=== PATIENT | female | born 1950 | race Caucasian/White ===

== ENCOUNTER 2016-05-03 07:55 | Inpatient (IN) | payer OTHER ==
[~2016-05-03] VITALS: Ht 162.6 cm; Wt 90.7 kg
[2016-05-03 08:01] VITALS: BP 137/84; PULSE 70; RESP 16; TEMP 97.3; O2SAT 97
--- NOTE | 2016-05-03 08:07 | NUR ---
Placed in room 5 . Placed on radiographer cardiac catheterization, blood pressure machine and pulse oximeter. To gown for exam. Side rails up. Report given to Noemi PURCELL.
--- NOTE | 2016-05-03 08:10 | NUR ---
Recevied Pt in bed 5. Pt stated she has been having x5 bloody stools since 4AM. Pt denies pain or discomfort.
[2016-05-03] MEDS ORDERED: NACL 0.9% 1,000 ML IV ONE (08:16)
[2016-05-03] MEDS ORDERED: NACL 0.9% 1,000 ML IV SCH (08:16)
--- NOTE | 2016-05-03 08:34 | NUR ---
Blood & blood culture for labwork drawn from. New IV inserted left wrist 20G HL. No s/s of infiltration or inflammation noted. Patient tolerated procedure. Informed Pt to push the call light if Pt needs assistance with anything. Pt verbalized understanding. Call light within easy reach,bed at lowest position, will continue to monitor. Addendum: 05/03/16 at 0924 by DEXTER IV access entered in error. correct IV site right wrist 20G HL
[2016-05-03 08:52] LABS: BASOPHILS # (AUTO) 0.3 K/uL (0.0-0.2); EOSINOPHILS # (AUTO) 0.1 K/uL (0.0-0.4); LYMPHOCYTES # (AUTO) 1.3 K/uL (1.0-5.5); RED CELL DISTRIBUTION WIDTH 13.5 % (9.0-15.0); WHITE BLOOD COUNT (AUTO) 5.5 K/uL (4.8-10.8)
[2016-05-03 08:55] LABS: BASOPHILS % (AUTO) 4.7 % (0.0-2.0); EOSINOPHILS % (AUTO) 2.6 % (0.0-4.0); HEMOGLOBIN 11.9 g/dL (12.0-16.0); LYMPHOCYTES % (AUTO) 23.1 % (20.5-51.5); MEAN CORPUSCULAR HEMOGLOBIN 29 pg (27-31); MEAN CORPUSCULAR HGB CONC 34 % (32-36); MEAN CORPUSCULAR VOLUME 87 fL (79.0-98.0); MONOCYTES # (AUTO) 0.3 K/uL (0.0-1.0); MONOCYTES % (AUTO) 6.3 % (1.7-9.3); NEUTROPHILS # (AUTO) 3.5 K/uL (1.8-7.7); NEUTROPHILS % (AUTO) 63.3 % (40.0-70.0); PLATELET COUNT (AUTO) 270 K/uL (130-430); RED BLOOD CELL COUNT(AUTO) 4.04 MIL/uL (4.2-6.2)
[2016-05-03 08:57] LABS: CALCIUM 8.9 mg/dL (8.4-11.0); CREATININE 0.73 mg/dL (0.55-1.30); POTASSIUM 4.1 mmol/L (3.5-5.1)
[2016-05-03] MEDS: ONDANSETRON HCL 4 MG/2 ML VIAL IVP ONE ×2 (08:57→09:03)
[2016-05-03 09:00] LABS: PROTHROMBIN TIME 10.6 SECS (9.5-12.5)
[2016-05-03 09:15] LABS: ALBUMIN 4.1 g/dL (3.4-4.8); TOTAL BILIRUBIN 0.5 mg/dL (0.0-1.0)
[2016-05-03 09:28] LABS: BILIRUBIN,URINE NEGATIVE (NEGATIVE); CLARITY/URINE CLEAR (CLEAR); COLOR,URINE YELLOW (YELLOW); GLUCOSE,URINE NEGATIVE (NEGATIVE); KETONES,URINE NEGATIVE (NEGATIVE); LEUKOCYTE ESTERASE ,URINE TRACE (NEGATIVE); NITRITE, URINE NEGATIVE (NEGATIVE); PH,URINE 5.5 (5.0-8.0); PROTEIN URINE NEGATIVE (NEGATIVE); UROBILINOGEN,URINE 0.2 (0.2-1.0)
[2016-05-03 09:29] LABS: BLOOD, URINE TRACE (NEGATIVE)
--- NOTE | 2016-05-03 09:31 | NUR ---
Dr. Munoz at the bedside discussing plan of care. Currently awaiting new orders.
--- NOTE | 2016-05-03 09:31 | NUR ---
Rectal exam performed by DR VELÁZQUEZ with JACKLYN MAX RN at bedside during procedure. Patient tolerated well.
[2016-05-03 09:43] LABS: BACTERIA,URINE FEW /HPF (None Seen); RBC,URINE 0-3 /HPF (0-3); WBC,URINE 0-3 /HPF (0-3)
[2016-05-03 09:44] LABS: MUCUS,URINE None Seen /LPF (None Seen)
[2016-05-03] MEDS ORDERED: ASPI-1063 PO (10:27)
[2016-05-03] MEDS ORDERED: LIP10 PO (10:27)
[2016-05-03] MEDS ORDERED: LOSA100T11 PO (10:27)
[2016-05-03] MEDS ORDERED: ONDANSETRON HCL 4 MG/2 ML VIAL IM PRN (10:30)
--- NOTE | 2016-05-03 10:44 | NUR ---
Patient will be admitted to care of DR SMALL. Admitted to TELE unit. Will go to room 135. Belongings list completed. Summary report printed. Report given to NURSE.
--- NOTE | 2016-05-03 10:57 | NUR ---
CALLED GI CONSULT TO DR JOHN INPATIENT CODER FOR DR HARDY, RE: GI BLEED. SPOKE TO OLGA
--- NOTE | 2016-05-03 11:13 | NUR ---
ADMISSION: The patient 66 y/o, F admitted by DR SMALL, was given written information regarding hospital policies, unit procedures and contact persons. Valuables were checked and SIGNED.
[2016-05-03] MEDS ORDERED: PANTOPRAZOLE SODIUM 40 MG/VIAL (PROTONIX) IVP ONE (11:15)
[2016-05-03 11:17] VITALS: BP 141/80; PULSE 62; RESP 16; TEMP 97.5; O2SAT 97
--- NOTE | 2016-05-03 12:00 | NUR ---
NOTE REPORT ON PT GIVEN AT 1135AM BY ADMIT RN JANNETH. PT WAS ORIENTED TO NURSING ROUTINES AND PROCEDURES. IV IN RIGHT WRIST PATENT AND INTACT AT THIS TIME. ADMISSION ASSESSMENT WAS COMPLETED AT THIS TIME WELL. CALL LIGHT WITHIN REACH.
--- NOTE | 2016-05-03 14:00 | NUR ---
NOTE PT WAS GIVEN CLEAR LIQUIDS AND TOLERATED WELL. NO NEEDS NOTED. CALL LIGHT WITHIN REACH.
[2016-05-03] MEDS: NACL 0.9% 1,000 ML IV SCH ×2 (14:40→20:42)
[2016-05-03 16:58] VITALS: BP 117/56; PULSE 74; RESP 17; TEMP 97; O2SAT 95
--- NOTE | 2016-05-03 17:00 | NUR ---
NOTE DR JOHN WAS CALLED AT 1600, TO REPORT THAT PT WAS HAVING VERY BLOODY STOOLS. 3X SINCE ADMISSION TO FLOOR AT 1135AM. PT STATES "ALL THAT COMES OUT IS WATERY, BLOODY DRAINAGE FROM [facility] TODAY". WAITING FOR CALL BACK FROM DR JOHN.
[2016-05-03] MEDS: LOSARTAN POTASSIUM 50 MG TABLET (COZAAR) PO ONE ×2 (17:52→17:57)
[2016-05-03 18:13] LABS: HEMATOCRIT 27.4 % (36-48); HEMOGLOBIN 9.2 g/dL (12.0-16.0)
--- NOTE | 2016-05-03 18:15 | NUR ---
NOTE DR ALBRIGHT WAS ON THE FLOOR. ORDERS GIVEN AND CARRIED OUT AT THIS TIME. PT RESTING IN BED. PT WAS GIVEN BSC AND INSTRUCTED TO USE BSC, PT WAS VERY WEAK AND LIGHTHEADED WHEN AMBULATING TO RESTROOM. PT VERBALIZED UNDERSTANDING. PT WAS CHECKED ON Q1' AND PRN FOR NEEDS AND CARE ALL SHIFT. PT FINISHED HER CLEAR LIQUIDS DINNER TRAY AT THIS TIME. TOLERATED DIET WELL AT THIS TIME. CALL LIGHT WITHIN REACH. NO SOB/RESP DISTRESS OR PAIN/DISCOMFORT NOTED AT THIS TIME.
--- NOTE | 2016-05-03 19:50 | NUR ---
initial nursing notes: Patient is awake. Patient has an IV fluid infusing on the right wrist IV access. Encouraged patient to use call light when getting out of the bed. Patient demonstrated proper use of call light.
[2016-05-03 20:19] VITALS: BP 132/62; PULSE 71; RESP 15; TEMP 99; O2SAT 97
[2016-05-03] MEDS: ATORVASTATIN 10 MG TABLET PO SCH (20:34)
[2016-05-03] MEDS: PANTOPRAZOLE SODIUM 40 MG/VIAL (PROTONIX) IVP SCH (20:39)
--- NOTE | 2016-05-03 21:50 | NUR ---
nursing rounds: Patient is resting in bed, watching television.
--- NOTE | 2016-05-03 23:50 | NUR ---
nursing rounds: Patient is asleep. Patient has no shortness of breath.
[2016-05-04] VITALS (7 sets, daily range): BP systolic 111–131; BP diastolic 56–88; PULSE 64–78; RESP 16–20; TEMP 97.8–98.9; O2SAT 97–100
--- NOTE | 2016-05-04 01:50 | NUR ---
nursing rounds: Patient is sleeping in bed. Kept siderails up X 3 and kept bed alarm on for patient's safety.
--- NOTE | 2016-05-04 03:50 | NUR ---
nursing rounds: Patient is sleeping in bed. Patient has no respiratory distress.
--- NOTE | 2016-05-04 05:45 | NUR ---
nursing rounds: Patient calmly resting in bed. Call light within patient's reach.
[2016-05-04] MEDS: NACL 0.9% 1,000 ML IV SCH ×3 (06:16→20:56)
[2016-05-04 07:16] LABS: CALCIUM 7.9 mg/dL (8.4-11.0); CREATININE 0.67 mg/dL (0.55-1.30); POTASSIUM 3.6 mmol/L (3.5-5.1)
--- NOTE | 2016-05-04 07:57 | NUR ---
closing nursing notes: Patient is awake, alert and oriented X 4. Patient is in no acute respiratory distress. No episodes of fall and no injuries throughout the claims specialist. Provided nursing report to incoming morning shift nurse, Daisy Mcghee RN, at patient's bedside.
--- NOTE | 2016-05-04 08:00 | NUR ---
INITIAL NOTES IN BED AWAKE, ALERT AND ORIENTED. DENIES ANY PAIN OR DISCOMFORT. DENIES ANY N/V. USES BEDSIDE COMMODE. IVF INFUSING WELL. ENC. TO CALL FOR HELP AT ALL TIMES. CALL LIGHT IN REACH. WILL MONITOR.
[2016-05-04 08:20] LABS: BASOPHILS % (AUTO) 0.3 % (0.0-2.0); EOSINOPHILS # (AUTO) 0.1 K/uL (0.0-0.4); EOSINOPHILS % (AUTO) 1.5 % (0.0-4.0); HEMOGLOBIN 8.2 g/dL (12.0-16.0); LYMPHOCYTES # (AUTO) 1.6 K/uL (1.0-5.5); MEAN CORPUSCULAR HEMOGLOBIN 30 pg (27-31); MEAN CORPUSCULAR HGB CONC 34 % (32-36); MEAN CORPUSCULAR VOLUME 87 fL (79.0-98.0); MONOCYTES # (AUTO) 0.3 K/uL (0.0-1.0); MONOCYTES % (AUTO) 5.5 % (1.7-9.3); NEUTROPHILS # (AUTO) 4.2 K/uL (1.8-7.7); NEUTROPHILS % (AUTO) 66.7 % (40.0-70.0); PLATELET COUNT (AUTO) 200 K/uL (130-430); RED BLOOD CELL COUNT(AUTO) 2.78 MIL/uL (4.2-6.2); RED CELL DISTRIBUTION WIDTH 13.4 % (9.0-15.0); WHITE BLOOD COUNT (AUTO) 6.2 K/uL (4.8-10.8)
[2016-05-04] MEDS: PANTOPRAZOLE SODIUM 40 MG/VIAL (PROTONIX) IVP SCH ×2 (09:00→20:53)
[2016-05-04] MEDS: LOSARTAN POTASSIUM 50 MG TABLET (COZAAR) PO SCH (09:01)
--- NOTE | 2016-05-04 09:27 | NUR ---
PAGED PAGEBlue SMALL RE: H&H RESULTS. AWAITING FOR CALL BACK
--- NOTE | 2016-05-04 09:43 | NUR ---
Nutrition Update Manuel Scale 18 noted. Pt admitted for GI bleed. Diet: clear liquid, NPO (2 active orders) BMI: 34.3 kg/m2 RD to follow per nutrition care standards.
--- NOTE | 2016-05-04 10:08 | NUR ---
spoke to dr. santos and ordered to transfused 1 unit of prbc. and check cbc at 1600.
[2016-05-04] MEDS ORDERED: DIATR MEGLU/DIATRIZ SOD 30 ML SOLUTION PO ONE (10:50)
--- NOTE | 2016-05-04 12:00 | NUR ---
blood transfusion started. educate pt on blood transfusion reaction. pt verbalize understanding. will monitor.
--- NOTE | 2016-05-04 14:10 | NUR ---
ROUNDS RESTING IN BED, BLOOD STILL INFUSING. NO REACTION NOTED AT THIS TIME. WILL MONITOR
--- NOTE | 2016-05-04 14:40 | NUR ---
1 unit of blood transfusion done. no reaction noted.
--- NOTE | 2016-05-04 15:30 | NUR ---
PT WENT FOR CT ABDOMEN/PELVIS. NO DISTRESS NOTED.
--- NOTE | 2016-05-04 16:00 | NUR ---
ROUNDS RESTING IN BED. DENIES ANY PAIN OR DISCOMFORT.
[2016-05-04 16:12] LABS: BASOPHILS % (AUTO) 0.3 % (0.0-2.0); EOSINOPHILS # (AUTO) 0.1 K/uL (0.0-0.4); EOSINOPHILS % (AUTO) 2.1 % (0.0-4.0); HEMATOCRIT 26.9 % (36-48); HEMOGLOBIN 9.3 g/dL (12.0-16.0); LYMPHOCYTES # (AUTO) 1.5 K/uL (1.0-5.5); LYMPHOCYTES % (AUTO) 31.1 % (20.5-51.5); MEAN CORPUSCULAR HEMOGLOBIN 30 pg (27-31); MEAN CORPUSCULAR HGB CONC 35 % (32-36); MEAN CORPUSCULAR VOLUME 85 fL (79.0-98.0); MONOCYTES # (AUTO) 0.2 K/uL (0.0-1.0); MONOCYTES % (AUTO) 3.9 % (1.7-9.3); NEUTROPHILS % (AUTO) 62.6 % (40.0-70.0); PLATELET COUNT (AUTO) 193 K/uL (130-430); RED BLOOD CELL COUNT(AUTO) 3.17 MIL/uL (4.2-6.2); RED CELL DISTRIBUTION WIDTH 13.5 % (9.0-15.0); WHITE BLOOD COUNT (AUTO) 4.8 K/uL (4.8-10.8)
[2016-05-04] MEDS ORDERED: BISACODYL 5 MG TABLET.DR (DULCOLAX) PO ONE (17:00)
[2016-05-04] MEDS ORDERED: GOLYTELY / COLYTE SOLUTION 4 LITERS PO ONE (18:00)
--- NOTE | 2016-05-04 18:02 | NUR ---
GOLYTELY DULCOLAX GIVEN AND GOLYTELY STARTED. INSTRUCTED PT NOT TO CALL IF SHE NEEDS TO GO TO THE BATHROOM. BEDSIDE COMMODE AT BEDSIDE. INSTRUCTED NOT TO EAT OR DRINK AFTER MIDNIGHT. PT VERBALIZE UNDERSTANDING.
--- NOTE | 2016-05-04 20:00 | NUR ---
Initial note A/O x 4, no SOB, no chest pain, denied pain. Skin warm to touch, IV #20 at R wrist, patent and free of infection or infiltration, continued NS @ 100 ml/hr. Lung sounds clear, active bowel sound. No edema noted, +2 radial and pedal pulses. Currently on clear liquid diet, and will be NPO tonight, patient aware that she will have colonoscope tomorrow (05/05/2016). Ambulatory under supervision. BSC at bedside. Continued taking Golytely. Instructed patient to use BSC, but patient stated "I will try to use bathroom, and if I am tired, I will use BSC." Call light within reach, will continue to monitor patient.
[2016-05-04] MEDS: ATORVASTATIN 10 MG TABLET PO SCH (20:53)
--- NOTE | 2016-05-04 22:00 | NUR ---
Rounds A/O x 4, no SOB, no chest pain, denied pain. IV #20 at R wrist, patent and free of infection or infiltration, continued NS @ 100 ml/hr. Ambulatory under supervision. BSC at bedside. Continued taking Golytely. Instructed patient to use BSC or call for ambulating to bathroom. Call light within reach, will continue to monitor patient.
--- NOTE | 2016-05-05 | NUR ---
Rounds Resting in bed. No respiratory distress, no SOB, no chest pain, no grimacing noted. IV #20 at R wrist, continued NS @ 100 ml/hr. BSC at bedside. Twylaly completed. Call light within reach, will continue to monitor patient.
--- NOTE | 2016-05-05 02:05 | NUR ---
Rounds Resting/sleeping in bed. No respiratory distress, no SOB, no chest pain, no grimacing noted. IV #20 at R wrist, continued NS @ 100 ml/hr. Call light within reach, will continue to monitor patient.
[2016-05-05 03:48] VITALS: BP 125/68; PULSE 64; RESP 16; TEMP 98.6; O2SAT 99
[2016-05-05] MEDS: NACL 0.9% 1,000 ML IV SCH (06:07)
--- NOTE | 2016-05-05 06:20 | NUR ---
Closing note A/O x 3, no SOB, no chest pain, skin warm to touch. IV at R wrist, continued NS @ 100 ml/hr, patent and free of infection or infiltration. Patient refused to use Tap water enema and stated she just had clear BM, no blood noted. NPO. Patient is aware colonoscope about 0730 on 05/05/2016. Call light within reach, will give report to incoming nurse.
[2016-05-05] MEDS ORDERED: SIMETHICONE 40 MG/0.6 ML ML ONE (06:54)
--- NOTE | 2016-05-05 07:30 | NUR ---
NOTES PT IS ON GI LAB AT THIS TIME.
[2016-05-05] MEDS: fentaNYL CITRATE/PF 100 MCG/2 ML AMP ONE ×2 (07:34→07:37)
[2016-05-05] MEDS: MIDAZOLAM HCL 5 MG/5 ML VIAL ONE ×2 (07:34→07:37)
[2016-05-05] MEDS: DIPHENHYDRAMINE INJ 50 MG/ML VIAL ONE ×2 (07:48→07:54)
--- NOTE | 2016-05-05 08:47 | NUR ---
FROM GI LAB BACK FROM GI LAB, PT SLIGHTLY DROWSY. NO DISTRESS NOTED. DENIES ANY PAIN. INSTRUCETD TO CALL IF SHE WANTS TO GET UP. CALL LIGHT IN REACH. WILL MONITOR.
[2016-05-05 08:49] VITALS: BP 136/65; PULSE 62; RESP 16; TEMP 98.2; O2SAT 97
--- NOTE | 2016-05-05 10:07 | NUR ---
ROUNDS Resting in bed, denies any pain or discomfort. no distress noted.
[2016-05-05] MEDS: PANTOPRAZOLE SODIUM 40 MG/VIAL (PROTONIX) IVP SCH ×2 (11:39→21:19)
[2016-05-05] MEDS: LOSARTAN POTASSIUM 50 MG TABLET (COZAAR) PO SCH (11:40)
[2016-05-05 12:00] VITALS: BP 130/70; PULSE 64; RESP 20; TEMP 98.8; O2SAT 95
--- NOTE | 2016-05-05 12:00 | NUR ---
ROUNDS RESTING IN BED, DENIES ANY PAIN OR DISCOMFORT. NO DISTRESS NOTED.
--- NOTE | 2016-05-05 14:30 | NUR ---
ROUNDS IN BED AWAKE, DENIES ANY PAIN OR DISCOMFORT.
[2016-05-05 17:03] VITALS: BP 128/68; PULSE 66; RESP 20; TEMP 98.6; O2SAT 96
--- NOTE | 2016-05-05 18:40 | NUR ---
NOTES AWAKE, DENIES ANY PAIN OR DISCOMFORT. MADE AWARE OF BLEEDING SCAN TOMORROW
[2016-05-05 20:00] VITALS: BP 129/61; PULSE 70; RESP 20; TEMP 98.4; O2SAT 95
--- NOTE | 2016-05-05 20:00 | NUR ---
AAOX4. IN NO APPARENT DISTRESS. VSS. DENIES PAIN. ON ROOM AIR. POX 95%. BREATH SOUNDS ESSENTIALLY CLEAR. BOWEL SOUNDS (+). PULSES PALPABLE. SKIN W/D. COLOR SATISFACTORY. HOB UP TO COMFORT. SIDE RAILS UP. CALL LIGHTS WITHIN REACH. AMBULATORY. BRP.
--- NOTE | 2016-05-05 21:00 | NUR ---
DR SMALL IN EARLIER, UP DATED ON STATUS. NO NEW ORDERS GIVEN. PT RESTING, WATCHING TV.
[2016-05-05] MEDS: ATORVASTATIN 10 MG TABLET PO SCH (21:20)
[2016-05-06] VITALS (7 sets, daily range): BP systolic 119–156; BP diastolic 55–84; PULSE 62–72; RESP 16–20; TEMP 97.7–99.2; O2SAT 96–99
--- NOTE | 2016-05-06 | NUR ---
AWAKE, READING A BOOK. TURNS SELF WELL.
[2016-05-06] MEDS: NACL 0.9% 1,000 ML IV SCH ×2 (02:24→08:30)
--- NOTE | 2016-05-06 06:00 | NUR ---
RESTFUL AND UNEVENTFUL NOC. REMAINS IN STABLE BUT GUARDED CONDITION.
--- NOTE | 2016-05-06 07:20 | NUR ---
NRSG: REPORT AT THE BEDSIDE. PATIENT, AWAKE,ALERT AND ORIENTED X 4. RESPIRATION EVEN AND UNLABLBORED. LUNGS CLEAR BILATERAL. NO C/O OF BLEEDING. ABDOMEN SOFT WITH BOWEL SOUNDS X 4 QUADRANTS, AMBULATED TO TOILET ,GAIT STEADY . HAD IVF AND IV SITE ON THE RIGHT WRIST GAUGE 20 INTACT AND INPLACED. AND NO S/S OF INFILTRATION. CALL LIGHT WITHIN REACH.
--- NOTE | 2016-05-06 07:40 | NUR ---
CONSENT: CONSENT SIGNED BY PATIENT FOR GI BLEEDING SCAN. AND WENT TO NUCLEAR ,ACCOMPANIED BY RACHAEL(TECH).
--- NOTE | 2016-05-06 10:05 | NUR ---
TEST: STILL ON NUCLEAR MEDS.
[2016-05-06] MEDS: LOSARTAN POTASSIUM 50 MG TABLET (COZAAR) PO SCH (12:03)
--- NOTE | 2016-05-06 12:22 | NUR ---
ROUNDS: SEEN AND EXAMINED BY DR. SMALL WITH NEW ORDERS. PATIENT WAS DOWNGRADE FROM TELE TO MED/SURG.
[2016-05-06] MEDS: PANTOPRAZOLE SODIUM 40 MG/VIAL (PROTONIX) IVP SCH ×2 (12:28→21:00)
[2016-05-06 12:39] LABS: BASOPHILS % (AUTO) 0.3 % (0.0-2.0); EOSINOPHILS # (AUTO) 0.2 K/uL (0.0-0.4); EOSINOPHILS % (AUTO) 3.4 % (0.0-4.0); HEMATOCRIT 26.2 % (36-48); HEMOGLOBIN 8.7 g/dL (12.0-16.0); LYMPHOCYTES # (AUTO) 1.3 K/uL (1.0-5.5); LYMPHOCYTES % (AUTO) 27.6 % (20.5-51.5); MEAN CORPUSCULAR HEMOGLOBIN 29 pg (27-31); MEAN CORPUSCULAR HGB CONC 33 % (32-36); MEAN CORPUSCULAR VOLUME 87 fL (79.0-98.0); MONOCYTES # (AUTO) 0.1 K/uL (0.0-1.0); NEUTROPHILS # (AUTO) 3.3 K/uL (1.8-7.7); NEUTROPHILS % (AUTO) 65.7 % (40.0-70.0); PLATELET COUNT (AUTO) 219 K/uL (130-430); RED BLOOD CELL COUNT(AUTO) 3.02 MIL/uL (4.2-6.2); WHITE BLOOD COUNT (AUTO) 4.9 K/uL (4.8-10.8)
--- NOTE | 2016-05-06 13:30 | NUR ---
RESULT CBC: DR. SMALL WAS CALLED FOR CBC RESULT AND SAID TO LET DR. JOHN SEE THE PATIENT AND LET HIM DECIDE .
[2016-05-06] MEDS ORDERED: PRO40 PO (13:34)
--- NOTE | 2016-05-06 15:07 | NUR ---
ORDER: DR. JOHN ORDER TO HOLD DISCHARGE FOR ONE DAY.
--- NOTE | 2016-05-06 15:53 | NUR ---
DIET: DR. JOHN HAD AN ORDER TO ADVANCE DIET FROM CLEAR LIQUIDS TO SOFT DIET.
--- NOTE | 2016-05-06 18:32 | NUR ---
CLOSING: RESTING ON BED, AWAKE,ALERT, NO BLEEDING. IV SITE INTACT AND INPLACED ON THE RIGHT WRIST #20 , NO S/S OF INFILTRATION.
--- NOTE | 2016-05-06 20:00 | NUR ---
PM Shift Assessment Received patient sitting up in bed, AAO x4, no acute distress noted. Assessment complete, vital signs stable, no complain of pain at this time. IV noted to right wrist, saline locked at this time, flushes well, no redness or swelling noted to IV site. Plan of care discussed with patient, she verbalized understanding. Education provided to call for assistance if she needs to get out of bed, she verbalized understanding. Call light is within reach, all fall and safety precautions in place, will continue to monitor for change in patient status.
[2016-05-06] MEDS: ATORVASTATIN 10 MG TABLET PO SCH (20:59)
--- NOTE | 2016-05-06 22:17 | NUR ---
RN Rounds Patient is resting quietly in bed, no acute distress noted. Bedtime snack provided per patient request. Scheduled medications were administered per MD order, patient tolerated well. Encouraged patient to call for assistance as needed, she verbalized understanding. Call light is within reach, all fall and safety precautions in place, will continue to monitor.
[2016-05-07 00:10] VITALS: BP 130/68; PULSE 72; RESP 19; TEMP 99.5; O2SAT 99
--- NOTE | 2016-05-07 00:22 | NUR ---
RN Rounds Patient is sleeping but easily arousable, no acute distress noted. No complain of pain at this time. Vital signs stable. Reminded patient to call for assistance if she needs to get out of bed. Call light is within reach, all fall and safety precautions in place, will continue to monitor.
--- NOTE | 2016-05-07 02:28 | NUR ---
RN Rounds Patient is sleeping, respirations are even and unlabored, no acute distress noted. No non-verbal signs of pain noted at this time. Call light is within reach, all fall and safety precautions in place, will continue to monitor.
[2016-05-07 04:00] VITALS: BP 139/67; PULSE 75; RESP 19; TEMP 98.2; O2SAT 98
--- NOTE | 2016-05-07 04:32 | NUR ---
RN Rounds Patient is sleeping, respirations are even and unlabored, no acute distress noted. Call light is within reach, all fall and safety precautions in place, will continue to monitor.
--- NOTE | 2016-05-07 06:52 | NUR ---
Closing Notes Patient is resting quietly in bed, no acute distress noted or complain of pain at this time. Patient is stable all needs met throughout shift. Will continue to monitor until endorsed to AM nurse at bedside.
[2016-05-07 08:00] VITALS: BP 132/74; PULSE 60; RESP 20; TEMP 97.4; O2SAT 92
--- NOTE | 2016-05-07 08:00 | NUR ---
initial notes rec patient awake alert sitting at the edge of the bed. ivl on the r wrist area intact. no infiltration noted. denies any abd pain. resp eas and unlabored. no acute distress noted. bed in low position and side rails up and locked. call light within reached. knows when to call for assistance for hlep. will continue to monitor patient.
[2016-05-07] MEDS: PANTOPRAZOLE SODIUM 40 MG/VIAL (PROTONIX) IVP SCH (08:28)
[2016-05-07] MEDS: LOSARTAN POTASSIUM 50 MG TABLET (COZAAR) PO SCH (08:28)
--- NOTE | 2016-05-07 10:00 | NUR ---
rounds due meds given, awaiting for dr santos, pt wants to go home .
[2016-05-07 11:19] LABS: BASOPHILS % (AUTO) 0.3 % (0.0-2.0); EOSINOPHILS # (AUTO) 0.1 K/uL (0.0-0.4); EOSINOPHILS % (AUTO) 2.6 % (0.0-4.0); HEMATOCRIT 27.8 % (36-48); HEMOGLOBIN 9.6 g/dL (12.0-16.0); LYMPHOCYTES # (AUTO) 1.3 K/uL (1.0-5.5); LYMPHOCYTES % (AUTO) 27.3 % (20.5-51.5); MEAN CORPUSCULAR HEMOGLOBIN 29 pg (27-31); MEAN CORPUSCULAR HGB CONC 35 % (32-36); MEAN CORPUSCULAR VOLUME 85 fL (79.0-98.0); MONOCYTES # (AUTO) 0.4 K/uL (0.0-1.0); MONOCYTES % (AUTO) 7.6 % (1.7-9.3); NEUTROPHILS # (AUTO) 2.9 K/uL (1.8-7.7); NEUTROPHILS % (AUTO) 62.2 % (40.0-70.0); PLATELET COUNT (AUTO) 230 K/uL (130-430); RED BLOOD CELL COUNT(AUTO) 3.27 MIL/uL (4.2-6.2); RED CELL DISTRIBUTION WIDTH 13.9 % (9.0-15.0); WHITE BLOOD COUNT (AUTO) 4.7 K/uL (4.8-10.8)
[2016-05-07 12:00] VITALS: BP 139/64; PULSE 68; RESP 18; TEMP 98.4; O2SAT 97
--- NOTE | 2016-05-07 12:00 | NUR ---
rounds seen by dr santos with order. no bleeding noted. no acute distress.
--- NOTE | 2016-05-07 14:00 | NUR ---
rounds sleeping when rounds made. no acute distress noted. live light within reached.
[2016-05-07 16:00] VITALS: BP 147/59; PULSE 73; RESP 17; TEMP 98.3; O2SAT 94
--- NOTE | 2016-05-07 16:00 | NUR ---
rounds call light within reached. no acute distress noted.
[2016-05-07 16:50] VITALS: BP 147/59; PULSE 72; RESP 18; TEMP 98.3; O2SAT 94
--- NOTE | 2016-05-07 16:54 | NUR ---
Beam Dyer Operator Note Provided patient with a note stating she was a patient at [facility] from 05/03 to 05/07 at patient's request.
--- NOTE | 2016-05-07 18:05 | NUR ---
closing notes pt was discharged after charge nurse spoke with dr santos. id band and heplock was removed. was escorted by rochelle ,refused the wheelchair. no sob noted, stable no acute distress. instructed re disch instructions.
--- NOTE | 2016-05-16 15:07 | NUR ---
Discharge Follow Up Phone Calls: Clinical Biochemist called and left messages for pt ([phone]) on 05/09/16, 05/13/16, 05/16/16. Clinical Biochemist contact information was provided and pt was encouraged to call back with any needs or concerns. Clinical Biochemist will continue to remain available for pt to call back, no further follow up phone calls will be made at this time.
== END 2016-05-07 18:00 | disposition home or self-care (01) | DRG 378 ==
LOC: SED 07:55 → STU 10:27 → SMU 05-06 22:12
PROVIDERS: ADMIT Family Medicine; ATTEND Family Medicine
PROC: 30233N1 Transfusion of Nonautologous Red Blood Cells into Peripheral Vein, Percutaneous Approach (ICD-10-PCS; 2016-05-04)
PROC: 0DBK8ZX Excision of Ascending Colon, Via Natural or Artificial Opening Endoscopic, Diagnostic (ICD-10-PCS; 2016-05-05)
PROC: CD17YZZ Planar Nuclear Medicine Imaging of Gastrointestinal Tract using Other Radionuclide (ICD-10-PCS; principal; 2016-05-06)
DX: K57.91 Diverticulosis of intestine, part unspecified, without perforation or abscess with bleeding (principal); D62 Acute posthemorrhagic anemia; I10 Essential (primary) hypertension; D12.2 Benign neoplasm of ascending colon; E78.5 Hyperlipidemia, unspecified; K64.8 Other hemorrhoids; Z79.899 Other long term (current) drug therapy; Z79.82 Long term (current) use of aspirin
CPT/HCPCS: 36415; 45385; 78278-TC; 80048; 80053; 81000-TC; 82272; 83605; 85018-TC; 85025; 85610-TC; 85730-TC; 86886; 86900; 86901; 86920; 87040-TC; 88305; 93005; 96360; 99291; A9560; C9113; J1200; J2250; J2405; J3010; J7030; J7040; P9021; Q9964

== ENCOUNTER → 2016-06-26 | Outpatient (CLI) | payer OTHER ==
[~2016-06-26] MED LIST: LIP10 PO; LOSA100T11 PO; PRO40 PO
[2016-06-26 11:51] LABS: EOSINOPHILS # (AUTO) 0.2 K/uL (0.0-0.4); HEMOGLOBIN 12.7 g/dL (12.0-16.0); MEAN CORPUSCULAR HGB CONC 32 % (32-36)
[2016-06-26 11:57] LABS: BASOPHILS # (AUTO) 0.1 K/uL (0.0-0.2); BASOPHILS % (AUTO) 1.8 % (0.0-2.0); EOSINOPHILS % (AUTO) 3.7 % (0.0-4.0); HEMATOCRIT 39.3 % (36-48); LYMPHOCYTES # (AUTO) 1.6 K/uL (1.0-5.5); LYMPHOCYTES % (AUTO) 30.2 % (20.5-51.5); MEAN CORPUSCULAR HEMOGLOBIN 28 pg (27-31); MEAN CORPUSCULAR VOLUME 87 fL (79.0-98.0); MONOCYTES # (AUTO) 0.4 K/uL (0.0-1.0); MONOCYTES % (AUTO) 7.4 % (1.7-9.3); NEUTROPHILS % (AUTO) 56.9 % (40.0-70.0); PLATELET COUNT (AUTO) 318 K/uL (130-430); RED BLOOD CELL COUNT(AUTO) 4.54 MIL/uL (4.2-6.2); RED CELL DISTRIBUTION WIDTH 14.1 % (9.0-15.0); WHITE BLOOD COUNT (AUTO) 5.3 K/uL (4.8-10.8)
[2016-06-26 12:15] LABS: ALBUMIN 4.4 g/dL (3.4-4.8); CALCIUM 9.4 mg/dL (8.4-11.0); CREATININE 0.82 mg/dL (0.55-1.30); POTASSIUM 3.8 mmol/L (3.5-5.1); TOTAL BILIRUBIN 0.3 mg/dL (0.0-1.0); TOTAL PROTEIN, SERUM 8.9 g/dL (6.4-8.3)
== END | disposition home or self-care (01) ==
LOC: SRD 10:38
PROVIDERS: ATTEND Family Medicine
DX: M47.896 Other spondylosis, lumbar region (principal); K57.31 Diverticulosis of large intestine without perforation or abscess with bleeding; I10 Essential (primary) hypertension; R73.09 Other abnormal glucose
CPT/HCPCS: 36415; 72110; 80053; 82728; 83540-TC; 85025; 87045-TC; 87046; 87177

== ENCOUNTER 2016-11-18 11:10 | Outpatient (CLI) | payer OTHER | END 2016-11-18 19:30 | disposition home or self-care (01) | LOC: SRD 11:10 | PROVIDERS: ATTEND Family Medicine | DX: M19.072 Primary osteoarthritis, left ankle and foot (principal); M77.32 Calcaneal spur, left foot ==

== ENCOUNTER 2017-09-23 10:13 | Outpatient (CLI) | payer OTHER ==
[~2017-09-23 10:13] MED LIST changes: -LOSA100T11 PO; +LOSA100T3 PO
[2017-09-23 11:14] LABS: BASOPHILS # (AUTO) 0.1 K/uL (0.0-0.2); BASOPHILS % (AUTO) 1.8 % (0.0-2.0); BILIRUBIN,URINE NEGATIVE (NEGATIVE); BLOOD, URINE NEGATIVE (NEGATIVE); CLARITY/URINE CLEAR (CLEAR); COLOR,URINE YELLOW (YELLOW); EOSINOPHILS # (AUTO) 0.1 K/uL (0.0-0.4); EOSINOPHILS % (AUTO) 3.4 % (0.0-4.0); GLUCOSE,URINE NEGATIVE (NEGATIVE); HEMATOCRIT 38.6 % (36-48); HEMOGLOBIN 12.9 g/dL (12.0-16.0); KETONES,URINE NEGATIVE (NEGATIVE); LEUKOCYTE ESTERASE ,URINE NEGATIVE (NEGATIVE); LYMPHOCYTES # (AUTO) 1.2 K/uL (1.0-5.5); LYMPHOCYTES % (AUTO) 31.3 % (20.5-51.5); MEAN CORPUSCULAR HEMOGLOBIN 29 pg (27-31); MEAN CORPUSCULAR HGB CONC 34 % (32-36); MEAN CORPUSCULAR VOLUME 87 fL (79.0-98.0); MONOCYTES # (AUTO) 0.3 K/uL (0.0-1.0); MONOCYTES % (AUTO) 8.1 % (1.7-9.3); NEUTROPHILS # (AUTO) 2.2 K/uL (1.8-7.7); NEUTROPHILS % (AUTO) 55.4 % (40.0-70.0); NITRITE, URINE NEGATIVE (NEGATIVE); PLATELET COUNT (AUTO) 305 K/uL (130-430); PROTEIN URINE NEGATIVE (NEGATIVE); RED BLOOD CELL COUNT(AUTO) 4.41 MIL/uL (4.2-6.2); RED CELL DISTRIBUTION WIDTH 13.6 % (9.0-15.0); UROBILINOGEN,URINE 0.2 (0.2-1.0)
[2017-09-23 11:20] LABS: WHITE BLOOD COUNT (AUTO) 3.9 K/uL (4.8-10.8)
[2017-09-23 11:29] LABS: CREATININE 0.73 mg/dL (0.55-1.30)
[2017-09-23 11:41] LABS: BILIRUBIN,DIRECT 0.2 mg/dL (0.0-0.3); FREE T4 (FREE THYROXINE) 0.8 ng/dl (0.8-1.5); THYROID STIMULATING HORMONE 5.53 uIu/mL (0.36-3.74); TOTAL BILIRUBIN 0.4 mg/dL (0.0-1.0)
== END 2017-09-23 19:38 | disposition home or self-care (01) ==
LOC: SLB 10:13
PROVIDERS: ATTEND Family Medicine
DX: Z00.01 Encounter for general adult medical examination with abnormal findings (principal); Z11.2 Encounter for screening for other bacterial diseases; I10 Essential (primary) hypertension; E78.5 Hyperlipidemia, unspecified; Z83.3 Family history of diabetes mellitus; Z79.899 Other long term (current) drug therapy
CPT/HCPCS: 36415; 80053; 80061; 80076; 81003; 82272; 83036; 84439; 84443-TC; 85025

== ENCOUNTER 2018-02-24 11:45 | Emergency (ER) | payer OTHER ==
[~2018-02-24] VITALS: Ht 167.6 cm; Wt 90.7 kg
[2018-02-24 11:45] VITALS: BP_SYST 159
[2018-02-24] MEDS ORDERED: KETOROLAC TROMETHAMINE 60 MG/2 ML VIAL IM ONE (12:15)
[2018-02-24] MEDS ORDERED: KETOROLAC TROMETHAMINE 30 MG VIAL ONE (12:36)
[2018-02-24 13:12] LABS: BASOPHILS % (AUTO) 1.6 % (0.0-2.0); EOSINOPHILS % (AUTO) 2.5 % (0.0-4.0); HEMOGLOBIN 12.9 g/dL (12.0-16.0); LYMPHOCYTES # (AUTO) 1.2 K/uL (1.0-5.5); LYMPHOCYTES % (AUTO) 27.3 % (20.5-51.5); MEAN CORPUSCULAR HEMOGLOBIN 29 pg (27-31); MEAN CORPUSCULAR HGB CONC 33 % (32-36); MEAN CORPUSCULAR VOLUME 88 fL (79.0-98.0); MONOCYTES # (AUTO) 0.3 K/uL (0.0-1.0); MONOCYTES % (AUTO) 6.9 % (1.7-9.3); NEUTROPHILS # (AUTO) 2.6 K/uL (1.8-7.7); NEUTROPHILS % (AUTO) 61.7 % (40.0-70.0); PLATELET COUNT (AUTO) 305 K/uL (130-430); RED BLOOD CELL COUNT(AUTO) 4.46 MIL/uL (4.2-6.2); RED CELL DISTRIBUTION WIDTH 13.2 % (9.0-15.0); WHITE BLOOD COUNT (AUTO) 4.4 K/uL (4.8-10.8)
[2018-02-24 13:13] LABS: BASOPHILS # (AUTO) 0.1 K/uL (0.0-0.2); EOSINOPHILS # (AUTO) 0.1 K/uL (0.0-0.4)
[2018-02-24] MEDS ORDERED: KETOROLAC TROMETHAMINE 30 MG VIAL IVP ONE (13:15)
[2018-02-24 13:25] LABS: POTASSIUM 3.7 mmol/L (3.5-5.1)
[2018-02-24 13:26] LABS: ALBUMIN 3.8 g/dL (3.4-4.8); CALCIUM 9.6 mg/dL (8.4-11.0); CREATININE 0.8 mg/dL (0.55-1.30); TOTAL BILIRUBIN 0.4 mg/dL (0.0-1.0)
[2018-02-24 14:56] VITALS: BP_SYST 121
== END 2018-02-24 14:56 | disposition home or self-care (01) ==
LOC: SED 11:45
DX: R07.89 Other chest pain (principal); R53.81 Other malaise; I10 Essential (primary) hypertension; Z79.899 Other long term (current) drug therapy
CPT/HCPCS: 36415; 71045; 80053; 82550; 83880; 84484; 85025; 93005; 96374; 99284; J1885

== ENCOUNTER 2018-02-27 11:44 | Outpatient (CLI) | payer OTHER ==
[2018-02-28 08:06] LABS: T4 (THYROXINE) 7.5 ug/dL (4.5-12.0)
== END 2018-02-27 19:40 | disposition home or self-care (01) ==
LOC: SLB 11:44
PROVIDERS: ATTEND Family Medicine
DX: E03.9 Hypothyroidism, unspecified (principal)
CPT/HCPCS: 36415; 84436; 84443-TC; 84479; 84480

== ENCOUNTER 2018-03-26 11:04 | Outpatient (CLI) | payer OTHER ==
[2018-03-26 11:57] LABS: CALCIUM 9.1 mg/dL (8.4-11.0); CREATININE 0.71 mg/dL (0.55-1.30); POTASSIUM 4.2 mmol/L (3.5-5.1)
== END 2018-03-26 21:13 | disposition home or self-care (01) ==
LOC: SLB 11:04
PROVIDERS: ATTEND Family Medicine
DX: I10 Essential (primary) hypertension (principal); R51 Headache
CPT/HCPCS: 36415; 80048

== ENCOUNTER 2018-03-30 09:12 | Outpatient (CLI) | payer OTHER | END 2018-03-30 21:28 | disposition home or self-care (01) | LOC: SCT 09:12 | PROVIDERS: ATTEND Family Medicine | DX: M79.605 Pain in left leg (principal); R51 Headache | CPT/HCPCS: 70450-TC; 93971 ==

== ENCOUNTER 2018-07-20 08:30 | Outpatient (CLI) | payer OTHER ==
[2018-07-20 09:14] LABS: BASOPHILS % (AUTO) 0.7 % (0.0-2.0); EOSINOPHILS # (AUTO) 0.2 K/uL (0.0-0.4); HEMATOCRIT 42.7 % (36-48); HEMOGLOBIN 14.1 g/dL (12.0-16.0); LYMPHOCYTES # (AUTO) 1.1 K/uL (1.0-5.5); LYMPHOCYTES % (AUTO) 21.9 % (20.5-51.5); MEAN CORPUSCULAR HEMOGLOBIN 29 pg (27-31); MEAN CORPUSCULAR HGB CONC 33 % (32-36); MEAN CORPUSCULAR VOLUME 87 fL (79.0-98.0); MONOCYTES # (AUTO) 0.4 K/uL (0.0-1.0); MONOCYTES % (AUTO) 7.7 % (1.7-9.3); NEUTROPHILS # (AUTO) 3.4 K/uL (1.8-7.7); NEUTROPHILS % (AUTO) 66.7 % (40.0-70.0); PLATELET COUNT (AUTO) 285 K/uL (130-430); RED BLOOD CELL COUNT(AUTO) 4.88 MIL/uL (4.2-6.2); RED CELL DISTRIBUTION WIDTH 14.6 % (9.0-15.0)
[2018-07-20 09:35] LABS: ALBUMIN 4.2 g/dL (3.4-4.8); CALCIUM 10.1 mg/dL (8.4-11.0); CREATININE 0.78 mg/dL (0.55-1.30); THYROID STIMULATING HORMONE 4.2 uIu/mL (0.34-4.82); TOTAL BILIRUBIN 0.7 mg/dL (0.0-1.0)
[2018-07-20 09:59] LABS: BILIRUBIN,URINE NEGATIVE (NEGATIVE); BLOOD, URINE NEGATIVE (NEGATIVE); CLARITY/URINE CLEAR (CLEAR); COLOR,URINE YELLOW (YELLOW); GLUCOSE,URINE NEGATIVE (NEGATIVE); KETONES,URINE NEGATIVE (NEGATIVE); LEUKOCYTE ESTERASE ,URINE NEGATIVE (NEGATIVE); NITRITE, URINE NEGATIVE (NEGATIVE); PH,URINE 5.5 (5.0-8.0); PROTEIN URINE NEGATIVE (NEGATIVE); UROBILINOGEN,URINE 0.2 (0.2-1.0)
== END 2018-07-20 21:07 | disposition home or self-care (01) ==
LOC: SLB 08:30
PROVIDERS: ATTEND Family Medicine
DX: Z12.11 Encounter for screening for malignant neoplasm of colon (principal); I10 Essential (primary) hypertension
CPT/HCPCS: 36415; 80053; 81003; 82272; 83036; 84439; 84443-TC; 85025

== ENCOUNTER 2019-02-07 13:51 | Emergency (ER) | payer OTHER ==
[~2019-02-07] VITALS: Ht 165.1 cm; Wt 97.5 kg
[2019-02-07 14:09] VITALS: BP_SYST 146
--- NOTE | 2019-02-07 15:21 | NUR ---
Patient to ER bed H1 to gown for evaluation. Side rails up. Report given to BINH Rutledge.
--- NOTE | 2019-02-07 15:23 | NUR ---
TIMOTHY Negrete at bedside examining patient.
--- NOTE | 2019-02-07 15:23 | NUR ---
Patient arrived via POV, AAOx4, and in wheelchair. Patient c/c of right ankle pain and swelling. Pain is rated 5/10. Moderate swelling and bruising to right lateral ankle. Patient states she injured her ankle when tripping on stairs.
--- NOTE | 2019-02-07 15:37 | NUR ---
Short leg posterior splint applied to right ankle. +2 pulse noted. Capillary refill <3 seconds. Patient has ability to move non-splinted digits. Has sensation present to affected site. Skin color within normal limits. Applied for pain management control.
--- NOTE | 2019-02-07 15:40 | NUR ---
Crutches properly fitted for patient by RN. Patient given crutch walking instructions and demonstration. Is able to demonstrate adequate crutch walking technique with crutches provided.
[2019-02-07] MEDS ORDERED: IBUPROFEN 600 MG TABLET PO ONE (15:45)
[2019-02-07 15:55] VITALS: BP_SYST 141
--- NOTE | 2019-02-07 15:55 | NUR ---
Patient given written and verbal discharge instructions and verbalizes understanding. ER MD discussed with patient the results and treatment provided. Patient in stable condition. ID arm band removed, kept per request. Rx of Motrin 600mg given. Patient educated on pain management and to follow up with PMD. Pain Scale 2/10. Opportunity for questions provided and answered. Medication side effect fact sheet provided.
== END 2019-02-07 15:55 | disposition home or self-care (01) ==
LOC: SED 13:51
DX: S93.491A Sprain of other ligament of right ankle, initial encounter (principal); I10 Essential (primary) hypertension; E78.5 Hyperlipidemia, unspecified; X50.1XXA Overexertion from prolonged static or awkward postures, initial encounter; Y93.89 Activity, other specified; Y92.89 Other specified places as the place of occurrence of the external cause; Y99.8 Other external cause status
CPT/HCPCS: 99283

== ENCOUNTER 2019-03-15 08:58 | Outpatient (CLI) | payer OTHER | END 2019-03-15 21:21 | disposition home or self-care (01) | LOC: SCT 08:58 | PROVIDERS: ATTEND Family Medicine | DX: M47.816 Spondylosis without myelopathy or radiculopathy, lumbar region (principal); M48.07 Spinal stenosis, lumbosacral region; M46.07 Spinal enthesopathy, lumbosacral region; M54.31 Sciatica, right side; R73.02 Impaired glucose tolerance (oral) | CPT/HCPCS: 36415; 72131; 83036 ==

== ENCOUNTER 2019-08-04 10:54 | Outpatient (CLI) | payer OTHER ==
[2019-08-04 11:55] LABS: BILIRUBIN,URINE NEGATIVE (NEGATIVE); BLOOD, URINE NEGATIVE (NEGATIVE); CLARITY/URINE CLEAR (CLEAR); COLOR,URINE YELLOW (YELLOW); GLUCOSE,URINE NEGATIVE (NEGATIVE); KETONES,URINE NEGATIVE (NEGATIVE); LEUKOCYTE ESTERASE ,URINE NEGATIVE (NEGATIVE); NITRITE, URINE NEGATIVE (NEGATIVE); PROTEIN URINE NEGATIVE (NEGATIVE); UROBILINOGEN,URINE 0.2 (0.2-1.0)
[2019-08-04 11:57] LABS: BASOPHILS % (AUTO) 0.4 % (0.0-2.0); EOSINOPHILS # (AUTO) 0.1 K/uL (0.0-0.4); EOSINOPHILS % (AUTO) 2.7 % (0.0-4.0); HEMATOCRIT 42.5 % (36-48); HEMOGLOBIN 13.9 g/dL (12.0-16.0); LYMPHOCYTES # (AUTO) 1.1 K/uL (1.0-5.5); MEAN CORPUSCULAR HEMOGLOBIN 29 pg (27-31); MEAN CORPUSCULAR HGB CONC 33 % (32-36); MEAN CORPUSCULAR VOLUME 89 fL (79.0-98.0); MONOCYTES # (AUTO) 0.3 K/uL (0.0-1.0); MONOCYTES % (AUTO) 7.9 % (1.7-9.3); NEUTROPHILS # (AUTO) 2.8 K/uL (1.8-7.7); PLATELET COUNT (AUTO) 282 K/uL (130-430); RED BLOOD CELL COUNT(AUTO) 4.78 MIL/uL (4.2-6.2); RED CELL DISTRIBUTION WIDTH 14.2 % (9.0-15.0); WHITE BLOOD COUNT (AUTO) 4.3 K/uL (4.8-10.8)
[2019-08-04 12:16] LABS: CALCIUM 8.8 mg/dL (8.4-11.0); CREATININE 0.64 mg/dL (0.55-1.30); FREE T4 (FREE THYROXINE) 0.6 ng/dL (0.6-1.6); POTASSIUM 3.7 mmol/L (3.5-5.1); THYROID STIMULATING HORMONE 7.9 uIu/mL (0.34-4.82); TOTAL BILIRUBIN 0.5 mg/dL (0.0-1.0)
== END 2019-08-04 18:56 | disposition home or self-care (01) ==
LOC: SLB 10:54
PROVIDERS: ATTEND Family Medicine
DX: Z00.00 Encounter for general adult medical examination without abnormal findings (principal)
CPT/HCPCS: 36415; 80053; 80061; 81003; 82272; 83036; 84439; 84443-TC; 85025

== ENCOUNTER 2019-10-08 19:01 | Emergency (ER) | payer OTHER, SELFPAY ==
[~2019-10-08] VITALS: Ht 170.2 cm; Wt 90.7 kg
--- NOTE | 2019-10-08 19:08 | NUR ---
Patient to ER bed 08 to gown for evaluation. Side rails up.
[2019-10-08 19:15] VITALS: BP_SYST 150
--- NOTE | 2019-10-08 19:31 | NUR ---
PATIENT BROUGHT IN COMPLAINING OF FEVER OF 101 TODAY WITH GENERALIZED WEAKNESS, CHEST PAIN RADIATING TO LEFT ARM WITH NUMBNESS AND LOWER BACK PAIN. PATIENT ALSO REPORTS HIGH BLOOD PRESSURE OF SBP 150S. PAIN 10/10. DENIES ANY SHORTNESS OF BREATH, COUGH, NAUSEA VOMITING, DIARRHEA, CONSTIPATION OR ABDOMINAL PAIN. NO OTHER COMPLAINTS/INJURIES PER PATIENT OR NOTED. WILL CONTINUE TO MONITOR.
--- NOTE | 2019-10-08 19:40 | NUR ---
# 20 gauge angiocath placed to LAC. Use of asceptic technique. Opsite placed over site. Blood return noted. Blood AND CULTURES for lab drawn from site. Flushed with 10 cc of normal saline. No evidence of infiltration noted. Patient tolerated well.
--- NOTE | 2019-10-08 20:00 | NUR ---
ER at bedside examining patient.
[2019-10-08 20:26] LABS: BASOPHILS % (AUTO) 0.5 % (0.0-2.0); HEMATOCRIT 40.3 % (36-48); HEMOGLOBIN 13.3 g/dL (12.0-16.0); LYMPHOCYTES # (AUTO) 0.8 K/uL (1.0-5.5); LYMPHOCYTES % (AUTO) 21.1 % (20.5-51.5); MEAN CORPUSCULAR HEMOGLOBIN 29 pg (27-31); MEAN CORPUSCULAR HGB CONC 33 % (32-36); MEAN CORPUSCULAR VOLUME 87 fL (79.0-98.0); MONOCYTES # (AUTO) 0.5 K/uL (0.0-1.0); MONOCYTES % (AUTO) 11.5 % (1.7-9.3); NEUTROPHILS # (AUTO) 2.6 K/uL (1.8-7.7); NEUTROPHILS % (AUTO) 66.9 % (40.0-70.0); PLATELET COUNT (AUTO) 201 K/uL (130-430); RED BLOOD CELL COUNT(AUTO) 4.61 MIL/uL (4.2-6.2); RED CELL DISTRIBUTION WIDTH 14.2 % (9.0-15.0); WHITE BLOOD COUNT (AUTO) 3.9 K/uL (4.8-10.8)
[2019-10-08 20:35] LABS: CREATININE 0.9 mg/dL (0.55-1.30); POTASSIUM 3.9 mmol/L (3.5-5.1)
[2019-10-08 20:41] LABS: ALBUMIN 3.7 g/dL (3.4-4.8); PROTHROMBIN TIME 9.9 SECS (9.5-12.5); TOTAL BILIRUBIN 0.3 mg/dL (0.0-1.0)
--- NOTE | 2019-10-08 20:57 | NUR ---
COVID SWAB OBTAINED
--- NOTE | 2019-10-08 21:02 | NUR ---
Patient resting quietly. No acute distress noted.
[2019-10-08 21:06] LABS: BILIRUBIN,URINE NEGATIVE (NEGATIVE); CLARITY/URINE CLEAR (CLEAR); COLOR,URINE YELLOW (YELLOW); GLUCOSE,URINE NEGATIVE (NEGATIVE); KETONES,URINE NEGATIVE (NEGATIVE); LEUKOCYTE ESTERASE ,URINE NEGATIVE (NEGATIVE); NITRITE, URINE NEGATIVE (NEGATIVE); PH,URINE 5.5 (5.0-8.0); PROTEIN URINE NEGATIVE (NEGATIVE); UROBILINOGEN,URINE 0.2 (0.2-1.0)
[2019-10-08 21:15] LABS: BLOOD, URINE TRACE (NEGATIVE)
[2019-10-08 21:17] LABS: BACTERIA,URINE FEW /HPF (None Seen); MUCUS,URINE None Seen /LPF (None Seen); RBC,URINE NONE SEEN /HPF (0-3); WBC,URINE NONE SEEN /HPF (0-3)
--- NOTE | 2019-10-08 22:32 | NUR ---
Dr. Chase at bedside discussing results
[2019-10-08] MEDS ORDERED: ACETAMINOPHEN 325 MG TABLET PO ONE (23:00)
[2019-10-08 23:05] VITALS: BP_SYST 138
--- NOTE | 2019-10-08 23:05 | NUR ---
Patient given written and verbal discharge instructions and verbalizes understanding. ER MD discussed with patient the results and treatment provided. Patient in stable condition. ID arm band removed. IV catheter removed intact and dressing applied, no active bleeding. No Rx given. Patient educated on pain management and to follow up with PMD. Pain Scale 0/10 Opportunity for questions provided and answered. Medication side effect fact sheet provided.
== END 2019-10-08 23:05 | disposition home or self-care (01) ==
LOC: SED 19:01
DX: R07.89 Other chest pain (principal); R50.9 Fever, unspecified; I10 Essential (primary) hypertension; E78.5 Hyperlipidemia, unspecified; Z20.828 Contact with and (suspected) exposure to other viral communicable diseases
CPT/HCPCS: 36415; 71045; 80053; 81000; 83605; 84484; 85025; 85610; 85730; 87040; 93005; 99285; U0003

== ENCOUNTER 2020-01-24 09:35 | Outpatient (CLI) | payer OTHER ==
[2020-01-24 11:06] LABS: FREE T4 (FREE THYROXINE) 0.7 ng/dL (0.6-1.6); THYROID STIMULATING HORMONE 6.18 uIu/mL (0.34-4.82)
[2020-01-25 08:07] LABS: TRIIODOTHYRONINE, FREE 2.9 pg/mL (2.0-4.4)
== END 2020-01-26 10:45 | disposition home or self-care (01) ==
LOC: SCT 09:35
PROVIDERS: ATTEND Family Medicine
DX: M54.40 Lumbago with sciatica, unspecified side (principal); M51.37 Other intervertebral disc degeneration, lumbosacral region; E03.9 Hypothyroidism, unspecified; M48.061 Spinal stenosis, lumbar region without neurogenic claudication
CPT/HCPCS: 36415; 72131; 76376; 84439; 84443-TC; 84480; 84481

== ENCOUNTER 2020-02-14 12:38 | Outpatient (CLI) | payer OTHER ==
[2020-02-14 14:15] LABS: BILIRUBIN,URINE NEGATIVE (NEGATIVE); BLOOD, URINE NEGATIVE (NEGATIVE); CLARITY/URINE CLEAR (CLEAR); COLOR,URINE YELLOW (YELLOW); GLUCOSE,URINE NEGATIVE (NEGATIVE); KETONES,URINE NEGATIVE (NEGATIVE); LEUKOCYTE ESTERASE ,URINE NEGATIVE (NEGATIVE); NITRITE, URINE NEGATIVE (NEGATIVE); PH,URINE 7.5 (5.0-8.0); PROTEIN URINE NEGATIVE (NEGATIVE); UROBILINOGEN,URINE 0.2 (0.2-1.0)
== END 2020-02-14 20:27 | disposition home or self-care (01) ==
LOC: SLB 12:38
PROVIDERS: ATTEND Family Medicine
DX: N39.41 Urge incontinence (principal)
CPT/HCPCS: 81003; 87086

== ENCOUNTER 2020-04-03 08:19 | Outpatient (CLI) | payer OTHER ==
[2020-04-03 10:50] LABS: FREE T4 (FREE THYROXINE) 1.2 ng/dl (0.8-1.5); THYROID STIMULATING HORMONE 4.37 uIu/mL (0.36-3.74)
[2020-04-04 08:06] LABS: T3 UPTAKE 27 % (24-39); TRIIODOTHYRONINE (T3) 124 ng/dL (71-180)
== END 2020-04-03 19:29 | disposition home or self-care (01) ==
LOC: SLB 08:19
PROVIDERS: ATTEND Family Medicine
DX: E03.9 Hypothyroidism, unspecified (principal)
CPT/HCPCS: 36415; 84439; 84443-TC; 84479; 84480

== ENCOUNTER 2020-04-06 10:00 | Outpatient (CLI) | payer OTHER | END 2020-04-06 11:48 | disposition home or self-care (01) | LOC: SMA 10:00 | PROVIDERS: ATTEND Family Medicine | DX: Z12.31 Encounter for screening mammogram for malignant neoplasm of breast (principal); N64.89 Other specified disorders of breast | CPT/HCPCS: 77067 ==